=== PATIENT | female | born 1955 | race Caucasian/White ===

== ENCOUNTER 2023-06-04 08:01 | Emergency (ER) | payer MEDICARE, BC, SELFPAY ==
[2023-06-04 08:05] VITALS: BP 173/84
[2023-06-04 08:24] VITALS: BMI 33.4
--- NOTE | 2023-06-04 08:25 | ED.GENMED ---
History of Present Illness
General
Chief Complaint: Abdominal Symptoms
Time Seen by Provider: 06/04/23 08:10
Travel History
Have you had any contact with someone who has COVID-19?: No
Do you have any symptoms of coronavirus? Fever > 100 degrees, chills, cough, shortness of breath, sore throat, loss of taste or smell, muscle aches, or headache?: No
History of Present Illness
History of Present Illness:
68-year-old female with no significant past medical history presents to the emergency department for evaluation of lower abdominal pain that began yesterday and is gradually worsening. She reports mucousy and bloody bowel movements this morning on
2 occasions. Denies any lower urinary tract voiding symptoms. No fever, chills, sweats, nausea, or vomiting. Pain is rated as mild to moderate and crampy in nature. Prior abdominal surgical history includes cholecystectomy, bladder lift, and
total hysterectomy with oophorectomy.
Past History
Past History
ED Past Medical History: None
ED Past Surgical History: Cholecystectomy
Social History
Tobacco: Non-smoker
Alcohol: None
Personal:
Living: with family
Employment: Employed
Review of Systems
Review of Systems
Allergies reviewed?: Yes
All Other Systems: ROS reviewed and negative except as documented in HPI and ROS
Phy Exam
Physical Exam
Physical Exam:
GEN: Well appearing, NAD, WDWN
HEENT: Oral mucosa moist, no scleral icterus
Cardiac: Regular rate
Lung: No respiratory distress, no tachypnea
Abdomen: Soft, minimal tenderness diffusely across the lower abdomen, no peritoneal signs
MSK: No gross deformity or injuries
Skin: Good color, no pallor or jaundice, no rashes
Neuro: AO x3, moves all extremities freely
Psych: Calm, cooperative
Course
Orders/Labs/Results
Orders:
Orders
02/12/24 08:19
CT Abd/Pel (IV only)-DH only Urgent
Comment:
Reason For Exam: lower abd pain
06/04/23 08:39
Complete Blood Count/With Diff Urgent
Comprehensive Metabolic Panel Urgent
Urinalysis Reflex To Culture Urgent
Date Specimen was Collected: 06/04/23
Time Specimen was Collected: 08:24
Urine Microscopic Reflex Cult Urgent
Abnormal Lab Results
06/04/23
08:39
Carbon Dioxide 21 L mmol/L
(22-30)
BUN 18 H mg/dl
(7-17)
Glucose 105 H mg/dl
(70-99)
Leukocyte Esterase Rfl Trace A
(Negative)
Urine Bacteria (Reflex) Few A
(Negative)
06/04/23 08:39
06/04/23 08:39
Vital Signs
Initial and Last Documented VS:
Initial Vital Signs
Temp Pulse Resp BP Pulse Ox
98.2 F 95 16 173/84 98
06/04/23 08:05 06/04/23 08:05 06/04/23 08:05 06/04/23 08:05 06/04/23 08:05
Last Documented Vital Signs
Temp Pulse Resp BP Pulse Ox
98.2 F 95 16 173/84 97
06/04/23 08:05 06/04/23 08:05 06/04/23 08:05 06/04/23 08:05 06/04/23 08:24
MDM/Problems Addressed
MDM/Problems Addressed:
Labs are reassuring, vital signs are normal, CT reveals uncomplicated acute diverticulitis. Will start the patient on Augmentin for 10 days, strongly encouraged to adhere to a clear liquid diet for the next 48 to 72 hours. Discussed ED return
parameters and follow-up precautions
*Critical Care Note
Total Time (30-74mins, 75-104mins- exclusive of procedures): Not Applicable
ED Attending Note
-
Portions of this chart may have been created with voice recognition software.� Occasional wrong word or��sound alike� substitutions may have occurred due to the inherent limitations of voice recognition software.
Discharge Plan
Departure
Patient Disposition: Home (Routine Discharge)
Date of Disposition: 06/04/23
Time of Disposition: 09:59
Patient with high blood pressure during this ER visit?: No
Discharge Problem:
Acute diverticulitis
Instructions: Clear Liquid Diet, Diverticulitis (DC)
Prescriptions:
New
amoxicillin-pot clavulanate 875-125 mg tablet
1 tab PO BID 10 Days Qty: 20 0RF
No Action
multivitamin [Rim-Agaxio-Zjvln] 1 EACH tablet
1 ea PO DAILY
loratadine [Children's Claritin] 5 MG/5 ML solution
5 mg PO DAILY
Vitamin B-12:
1 mg PO DAILY
omeprazole [Prilosec] 40 MG capsule,delayed release(DR/EC)
40 mg PO DAILY Qty: 30 0RF
Referrals:
Angel Luis Kruse MD [Family Provider] -
Interventions
Interventions:
*Risk Screen - Suicide Last Done: 06/04/23 08:24
*General Assessment Last Done: 06/04/23 08:24
*Neglect/Abuse Screening Last Done: 06/04/23 08:24
ED- Fall Risk Assessment Last Done: 06/04/23 08:24
*ED COVID-19 Vaccine History Last Done: 06/04/23 08:05
TV-Sofwxm-Xsunvhzesq Assessment Last Done: 06/04/23 08:24
[2023-06-04 08:36] VITALS: BP 142/83
[2023-06-04 08:53] LABS: % Basophils 0.2 % (0-2); % Eosinophils 1.1 % (0-6); % Immature Granulocytes 0.1 % (0-0.5); % Lymphocytes 23.3 % (20.5-51.1); % Monocytes 5.9 % (1.7-9.3); % Neutrophils 69.4 % (42.2-75.2); Absolute Eosinophils 0.1 10^3/uL (0-0.7); Absolute Monocytes 0.5 10^3/uL (0.1-0.6); Absolute Neutrophils 6.1 10^3/uL (1.4-6.5); Hematocrit 40.5 % (37.0-47.0); Hemoglobin 14.3 g/dL (12.0-16.0); Mean Corp Hgb Conc. 35.3 g/dL (33.0-37.0); Mean Corpuscular Hgb 30.6 pg (27.0-31.0); Mean Corpuscular Volume 86.7 fL (81.0-99.0); Mean Platelet Volume 8.9 fL (7.4-10.4); Nucleated Red Blood Cells % 0 %; Platelet Count 260 10^3/uL (130-400); Red Blood Cell Count 4.67 10^6/uL (4.20-5.40); Red Cell Dist. Width 12.8 % (11.5-14.5); White Blood Cell Count 8.8 10^3/uL (4.8-10.8)
[2023-06-04 08:58] LABS: Urine Albumin Negative (Neg - Trace); Urine Bilirubin Negative (Negative); Urine Character Clear (Clear); Urine Color Yellow; Urine Glucose Negative (Negative); Urine Ketone Negative (Negative); Urine Leukocyte Trace (Negative); Urine Nitrite Negative (Negative); Urine Occult Blood Negative (Negative); Urine Urobilinogen Negative (Neg - 1+)
[2023-06-04 09:00] VITALS: BP 128/69
[2023-06-04 09:06] LABS: Urine Mucus Few; Urine Squamous Cell 16-20 /LPF (Few)
[2023-06-04 09:07] LABS: Urine Red Blood Cell 0-2 /HPF (0-2); Urine Urothelial Cell 0-2 /LPF (FEW)
[2023-06-04 09:08] LABS: ALT (SGPT) 22 U/L (0-35); AST (SGOT) 24 U/L (14-36); Albumin 3.8 g/dl (3.5-5.0); Alkaline Phosphatase 94 U/L (38-126); Blood Urea Nitrogen 18 mg/dl (7-17); Calcium 9.1 mg/dl (8.4-10.2); Carbon Dioxide 21 mmol/L (22-30); Chloride 104 mmol/L (98-107); Estimated Creatinine Clearance 99 ml/min; Glucose 105 mg/dl (70-99); Sodium 138 mmol/L (135-145); Total Bilirubin 0.7 mg/dl (0.2-1.3); Total Protein 6.8 g/dl (6.3-8.2); Urine Bacteria Few (Negative); Urine White Cell 0-2 /HPF (0-5); eGFR > 60.00
--- NOTE | 2023-06-04 10:23 | EDRN ---
Discharge instructions given to patient by Boo Dyer PA-C.
== END 2023-06-04 10:20 | disposition home or self-care (01) ==
LOC: EMR 08:01
PROVIDERS: Physician Assistant; EMERGENCY PHYSICIAN Emergency Medicine; FAMILY PHYSICIAN Family Medicine
DX: K57.92 Diverticulitis of intestine, part unspecified, without perforation or abscess without bleeding (principal)
CPT/HCPCS: 99284; 74177; 80053; 81003; 81015; 85025; Q9967

== ENCOUNTER 2025-04-13 20:29 | Emergency (ER) | payer MEDICARE, BC, SELFPAY ==
[2025-04-13 20:30] VITALS: BP 194/96
[2025-04-13 20:47] LABS: Hematocrit 40.1 % (37.0-47.0); Hemoglobin 14.1 g/dL (12.0-16.0); Mean Corp Hgb Conc. 35.2 g/dL (33.0-37.0); Mean Corpuscular Volume 87.4 fL (81.0-99.0); Nucleated Red Blood Cells % 0 %; Platelet Count 272 10^3/uL (130-400); Red Cell Dist. Width 12.6 % (11.5-14.5)
[2025-04-13 21:12] LABS: ALT (SGPT) 27 U/L (0-35); AST (SGOT) 27 U/L (14-36); Albumin 4.4 g/dl (3.5-5.0); Alkaline Phosphatase 101 U/L (38-126); Blood Urea Nitrogen 19 mg/dl (7-17); Calcium 9.3 mg/dl (8.4-10.2); Carbon Dioxide 24 mmol/L (22-30); Chloride 104 mmol/L (98-107); Glucose 109 mg/dl (70-99); Potassium 4.0 mmol/L (3.5-5.1); Sodium 137 mmol/L (135-145); Total Protein 7.3 g/dl (6.3-8.2); eGFR > 60.00
--- NOTE | 2025-04-13 23:09 | ED.GENMED ---
History of Present Illness
General
Chief Complaint: Abdominal Pain
Source: patient
Exam Limitations: none
Time Seen by Provider: 04/13/25 23:00
Nursing documentation reviewed up to this point in time: agreed with
History of Present Illness
History of Present Illness:
Note:
CHIEF COMPLAINT(S)
Lower abdominal pain.
HISTORY OF PRESENT ILLNESS
The patient is a 70-year-old female with no pmh presenting with complaints of lower abdominal pain that began over the weekend. She describes the pain as constant and worsening since its onset. The pain is localized and does not radiate. There is
no associated nausea, vomiting, decreased appetite, urinary symptoms, or diarrhea. She has experienced similar symptoms once before when she had diverticulitis but reports no regular follow-up with a deputy coroner investigator. The patient suspects dietary
triggers for her symptoms, as she consumes 'M&Ms' which may contain nuts. Her family history is significant for similar gastrointestinal issues in her brother and mother, the latter having required surgery for diverticulitis. The patient denies any
recent contact with sick individuals and reports no recent fevers. The pain does not significantly disturb her when lying down but causes pressure when sitting up, particularly while sewing. It is mildly tender to the touch but not acutely painful
on movement.
PHYSICAL EXAM
General: Patient is well appearing and in no acute distress; non-toxic
Skin: Warm and dry, no rashes or lesions
Head: Normocephalic, atraumatic
Eyes: Sclera non-icteric. EOMs intact.
Cardiac: Regular rate and rhythm, no murmurs
Peripheral Vascular: No lower extremity swelling or edema
Pulm: Normal respiratory effort, no wheezes, rales, or rhonchi
Abdomen: No abdominal tenderness to palpation
Neuro: CN II-XII intact, no focal neurologic deficits.
Psychiatric: Appropriate mood and affect.
PAST MEDICAL AND SURGICAL HISTORY
- Hysterectomy
- Bladder sling procedure
- Cholecystectomy (gall bladder removal)
SOCIAL DETERMINANTS OF HEALTH
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
PLAN
A computed tomography (CT) scan of the abdominal area is planned to evaluate for potential complications related to diverticulitis or other abdominal pathology. The patient will be monitored closely to rule out complications like abscesses, given
her past surgical history.
DIFFERENTIAL DIAGNOSIS
The Differential Diagnosis includes, in no particular order and is not limited to:
- Diverticulitis
- Abdominal abscess
- Small bowel obstruction
- Gastroenteritis
- Irritable bowel syndrome
- Inflammatory bowel disease
- Mesenteric ischemia
- Ovarian torsion
- Hernia
- Pyelonephritis
CHART REVIEW
Reviewed ER physician documentation from 06/04/2023 patient seen for acute diverticulitis, reviewed operative report from 05/07/2015 patient seen for rotator cuff repair
MEDICATION RECONCILIATION
The patient takes Flexeril (cyclobenzaprine) and vitamins. No blood pressure or cholesterol medications are currently being taken.
MEDICAL DECISION MAKING
70-year-old female presents ER today with concerns of abdominal pain. She has not had any fevers or chills, no sick contacts. No vomiting. On exam, she is well-appearing in no acute distress. She is without fever. CT scan reveals acute
uncomplicated diverticulitis. Will initiate Augmentin. Patient stable for discharge. Discussed return precautions.
Chronic conditions affecting care: None reported by the patient.
- Data:
Category 1
The following testing was considered: Computed tomography (CT) scan of abdomen to rule out diverticular disease or abdominal abscess.
Category 2
Clinical information was obtained from the patients account and current presentation.
Category 3
Discussion of management included consideration of future management options with the patients primary care physician if diverticulitis is confirmed.
DIAGNOSIS
- Suspected Diverticulitis (ICD-10: K57.92)
- Abdominal Pain, Unspecified (ICD-10: R10.9)
Past History
Past History
ED Past Medical History: None
ED Past Surgical History: Cholecystectomy
Social History
Tobacco: Non-smoker
Alcohol: None
Personal:
Living: with family
Employment: Employed
Phy Exam
Physical Exam
Physical Exam:
see hpi
Course
Orders/Labs/Results
Orders:
Orders
04/13/25 20:38
CMP [Comprehensive Metabolic Panel] Urgent
Complete Blood Count/With Diff Urgent
04/13/25 23:36
Urinalysis Reflex To Culture Urgent
Date Specimen was Collected: 04/14/25
Time Specimen was Collected: 01:07
04/14/25
CT Abd/pelvis W Iv Cont Urgent
Reason For Exam: b/l lower ab pain
04/14/25 01:08
Urine Microscopic Reflex Cult Urgent
Urine Culture Urgent
ROCKY Source: U
Specimen Description:
Date Specimen was Collected: 04/14/25
Time Specimen was Collected: 01:07
04/14/25 01:38
Amoxicillin 875 mg/Clav 125 mg [Augmentin 875 mg/125 mg] 1 tablet PO NOW STA
04/14/25 01:40
Amoxicillin 875 mg/Clav 125 mg [Augmentin 875 mg/125 mg] 1 tablet PO NOW STA
Abnormal Lab Results
04/13/25 04/14/25
20:38 01:08
BUN 19 H mg/dl
(7-17)
Glucose 109 H mg/dl
(70-99)
Leukocyte Esterase Rfl 1+ A
(Negative)
Urine Bacteria (Reflex) Few A
(Negative)
Urine Albumin (Reflex) 1+ A
(Neg - Trace)
04/13/25 20:38
04/13/25 20:38
Vital Signs
Initial and Last Documented VS:
Initial Vital Signs
Temp Pulse Resp BP Pulse Ox
98.1 F 90 20 194/96 98
04/13/25 20:30 04/13/25 20:30 04/13/25 20:30 04/13/25 20:30 04/13/25 20:30
Last Documented Vital Signs
Temp Pulse Resp BP Pulse Ox
98.1 F 77 18 160/85 99
04/13/25 20:30 04/14/25 01:52 04/14/25 01:52 04/14/25 01:52 04/14/25 01:52
*Pulse Oximetry
SaO2: 98
Oxygen Mode of Delivery: Room air
Patient hypoxic: no
*Critical Care Note
Total Time (30-74mins, 75-104mins- exclusive of procedures): Not Applicable
ED Attending Note
-
Portions of this chart may have been created with voice recognition software.� Occasional wrong word or��sound alike� substitutions may have occurred due to the inherent limitations of voice recognition software.
Discharge Plan
Departure
Patient Disposition: Home (Routine Discharge)
Date of Disposition: 04/14/25
Time of Disposition: 01:41
Patient with high blood pressure during this ER visit?: Yes
Condition: Good
Discharge Problem:
Diverticulitis of sigmoid colon
Instructions: Diverticulitis (DC), BLOOD PRESSURE
Prescriptions:
New
amoxicillin-pot clavulanate 875-125 mg tablet
1 tab PO ONCE Qty: 9 0RF
amoxicillin-pot clavulanate 875-125 mg tablet
1 tab PO BID 10 Days Qty: 19 0RF
No Action
multivitamin [Sxg-Mukkdm-Xwtup] 1 EACH tablet
1 ea PO DAILY
loratadine [Children's Claritin] 5 MG/5 ML solution
5 mg PO DAILY
Vitamin B-12:
1 mg PO DAILY
omeprazole [Prilosec] 40 MG capsule,delayed release(DR/EC)
40 mg PO DAILY Qty: 30 0RF
amoxicillin-pot clavulanate 875-125 mg tablet
1 tab PO BID 10 Days Qty: 20 0RF
Referrals:
Callie Iglesias PA [Family Provider]
Activity Restrictions/Additional Instructions:
You were started on Augmentin today. He received your first dose. The rest of the medication has been sent to your pharmacy. You can take 1 tablet twice daily for 10 days.
Please follow-up your primary care provider
PLEASE RETURN TO ER TO DEVELOP ACUTE WORSENING OR PAIN, FEVERS OR CHILLS, INTRACTABLE NAUSEA OR VOMITING, CHEST PAIN OR SHORTNESS OF BREATH, OR ANY OTHER SIGNS OR SYMPTOMS WORRISOME TO YOU.
Interventions
Interventions:
*General Assessment Last Done: 04/13/25 23:58
*Neglect/Abuse Screening Last Done: 04/13/25 20:30
*ED COVID-19 Vaccine History Last Done: 04/13/25 23:58
*ED Influenza Vaccine History Last Done: 04/13/25 23:58
[facility] Risk Assessment Tool Last Done: 04/13/25 23:58
*Risk Screen - Suicide (C-SSRS) Last Done: 04/13/25 20:30
*Nursing Disposition Last Done: 04/14/25 01:59
NF-Dupziu-Bitbeshwqm Assessment Last Done: 04/13/25 23:59
Discharge Date and Time
Discharge Date/Time: 04/14/25 02:01
Print Language: [place]
[2025-04-13 23:53] VITALS: BP 148/83
[2025-04-14 01:15] LABS: Urine Character Clear (Clear)
[2025-04-14 01:28] LABS: Urine Red Blood Cell 0-2 /HPF (0-2)
[2025-04-14] MEDS: AUGMENTIN 875 MG/125 MG 1 TABLET PO (01:49)
[2025-04-14 01:52] VITALS: BP 160/85
== END 2025-04-14 02:01 | disposition home or self-care (01) ==
LOC: EMR 20:29
PROVIDERS: Emergency Medicine; Physician Assistant; EMERGENCY PHYSICIAN Emergency Medicine; FAMILY PHYSICIAN Physician Assistant
DX: K57.32 Diverticulitis of large intestine without perforation or abscess without bleeding (principal); Z90.49 Acquired absence of other specified parts of digestive tract; Z90.710 Acquired absence of both cervix and uterus
CPT/HCPCS: 99283; 74177; 80053; 81003; 81015; 85025; 87086; Q9967